=== PATIENT | female | born 1985 | race African-American/Black ===

== ENCOUNTER 2017-04-08 18:41 | Emergency (ER) | payer SELFPAY ==
[~2017-04-08] VITALS: Ht 167.6 cm; Wt 68.0 kg
[2017-04-08 18:42] VITALS: BP 119/79
[2017-04-08] MEDS ORDERED: LIDOCAINE 1%, 20ML ONE (19:02)
[2017-04-08] MEDS ORDERED: LIDOCAINE 1%, 20ML SQ ONE (19:30)
== END 2017-04-08 19:44 | disposition home or self-care (01) ==
LOC: ED 19:40
DX: L02.414 Cutaneous abscess of left upper limb (principal); M79.602 Pain in left arm
CPT/HCPCS: 10060

== ENCOUNTER 2017-06-15 12:46 | Emergency (ER) | payer SELFPAY ==
[~2017-06-15] VITALS: Ht 167.6 cm; Wt 64.1 kg
[2017-06-15 12:52] VITALS: BP 94/61
[2017-06-15] MEDS ORDERED: LIDOCAINE-MPF 1%, 5ML ONE (13:14)
== END 2017-06-15 13:55 | disposition home or self-care (01) ==
LOC: ED 13:45
DX: L02.411 Cutaneous abscess of right axilla (principal)
CPT/HCPCS: 10060; 99283

== ENCOUNTER 2017-08-28 04:07 | Emergency (ER) | payer MEDICAID, OTHER ==
[~2017-08-28] VITALS: Ht 167.6 cm; Wt 65.3 kg
[2017-08-28 04:12] VITALS: BP 120/78
[2017-08-28] MEDS ORDERED: ONDANSETRON ODT 4 MG ONE (05:15)
[2017-08-28] MEDS ORDERED: ACETAMINOPHEN 500 MG TABLET ONE (05:15)
[2017-08-28] MEDS ORDERED: ACETAMINOPHEN 500 MG TABLET PO ONE (05:30)
== END 2017-08-28 05:42 | disposition home or self-care (01) ==
LOC: ED 05:37
DX: K08.89 Other specified disorders of teeth and supporting structures (principal)
CPT/HCPCS: 99283

== ENCOUNTER 2017-09-07 20:51 | Emergency (ER) | payer MEDICAID, OTHER ==
[~2017-09-07] VITALS: Ht 152.4 cm; Wt 65.8 kg
[2017-09-07 21:20] LABS: MICROSCOPIC AUTO
[2017-09-07] MEDS ORDERED: PREN1TAB69 PO (21:22)
[2017-09-07 21:28] LABS: CULTURE INDICATED? NO
[2017-09-07 21:49] LABS: ALBUMIN 3.8 g/dL (3.4-5.0); ANION GAP 7 mmol/L (5-15); CALCIUM 9.2 mg/dL (8.5-10.1); CHLORIDE 107 mmol/L (98-107)
[2017-09-07 21:59] LABS: BASOPHILS # (AUTO) 0.06 x10^3/uL (0-0.1); BASOPHILS % (AUTO) 0 % (0-1); EOSINOPHILS # (AUTO) 0.08 x10^3/uL (0-0.4); EOSINOPHILS % (AUTO) 1 % (1-7); LYMPHOCYTES # (AUTO) 3.43 x10^3/uL (1-3.4); LYMPHOCYTES % (AUTO) 24 % (22-44); MD NO; MEAN CORPUSCULAR HEMOGLOBIN 30.3 pg (27.0-34.8); MEAN CORPUSCULAR HGB CONC 33.2 g/dL (32.4-35.8); MEAN PLATELET VOLUME 7.4 fL (7.4-10.4); MONOCYTES # (AUTO) 1.13 x10^3/uL (0.2-0.8); MONOCYTES % (AUTO) 8 % (2-9); NEUTROPHILS # (AUTO) 9.88 x10^3/uL (1.8-6.8); NEUTROPHILS % (AUTO) 68 % (42-75); PLATELET COUNT 375 x10^3/uL (130-400); RED BLOOD COUNT 4.32 x10^6/uL (3.82-5.3); RED CELL DISTRIBUTION WIDTH 13.9 % (9.6-15.2)
[2017-09-07 22:08] LABS: CREATININE 0.55 mg/dL (0.55-1.02)
[2017-09-07 23:21] VITALS: BP 129/78
== END 2017-09-07 23:23 | disposition home or self-care (01) ==
LOC: ED 21:25
DX: O20.0 Threatened abortion (principal); Z3A.08 8 weeks gestation of pregnancy
CPT/HCPCS: 36415; 76801; 80048; 81001; 82040; 84702; 85025; 86901; 99285

== ENCOUNTER 2017-09-10 21:15 | Emergency (ER) | payer MEDICAID ==
[~2017-09-10] VITALS: Ht 165.1 cm; Wt 65.8 kg
[~2017-09-10 21:15] MED LIST: PREN1TAB69 PO
[2017-09-10 21:23] VITALS: BP 126/87
[2017-09-10 22:08] LABS: MICROSCOPIC INDICATED
[2017-09-10 22:15] LABS: CULTURE INDICATED? NO
[2017-09-10 22:24] LABS: BASOPHILS # (AUTO) 0.03 x10^3/uL (0-0.1); BASOPHILS % (AUTO) 0 % (0-1); EOSINOPHILS # (AUTO) 0.08 x10^3/uL (0-0.4); EOSINOPHILS % (AUTO) 1 % (1-7); LYMPHOCYTES # (AUTO) 2.13 x10^3/uL (1-3.4); LYMPHOCYTES % (AUTO) 17 % (22-44); MD NO; MEAN CORPUSCULAR HEMOGLOBIN 30.7 pg (27.0-34.8); MEAN CORPUSCULAR HGB CONC 33.9 g/dL (32.4-35.8); MEAN CORPUSCULAR VOLUME 90.3 fL (80-100); MEAN PLATELET VOLUME 7.1 fL (7.4-10.4); MONOCYTES # (AUTO) 1.28 x10^3/uL (0.2-0.8); MONOCYTES % (AUTO) 10 % (2-9); NEUTROPHILS # (AUTO) 8.94 x10^3/uL (1.8-6.8); NEUTROPHILS % (AUTO) 72 % (42-75); PLATELET COUNT 325 x10^3/uL (130-400); RED BLOOD COUNT 3.99 x10^6/uL (3.82-5.3); RED CELL DISTRIBUTION WIDTH 13.3 % (9.6-15.2)
[2017-09-10 22:37] LABS: ALBUMIN 3.5 g/dL (3.4-5.0); ANION GAP 7 mmol/L (5-15); CALCIUM 9.1 mg/dL (8.5-10.1); CHLORIDE 105 mmol/L (98-107); CREATININE 0.65 mg/dL (0.55-1.02)
== END 2017-09-10 23:22 | disposition home or self-care (01) ==
LOC: ED 21:54
DX: O26.891 Other specified pregnancy related conditions, first trimester (principal); O46.91 Antepartum hemorrhage, unspecified, first trimester; Z3A.01 Less than 8 weeks gestation of pregnancy
CPT/HCPCS: 36415; 76801; 80048; 81001; 82040; 84702; 85025; 99285